=== PATIENT | female | born 1995 | race Hispanic/Latino ===

== ENCOUNTER 2017-04-24 14:42 | Emergency (ER) | payer SELFPAY | END 2017-04-24 15:26 | disposition home or self-care (01) | LOC: SCSER 14:42 | DX: J32.9 Chronic sinusitis, unspecified (principal); J30.9 Allergic rhinitis, unspecified | CPT/HCPCS: 99283 ==

== ENCOUNTER 2019-03-09 08:49 | Emergency (ER) | payer SELFPAY | END 2019-03-09 10:02 | disposition home or self-care (01) | LOC: SCSER 08:49 | DX: M79.644 Pain in right finger(s) (principal); R23.8 Other skin changes | CPT/HCPCS: 87529; 99283 ==